=== PATIENT | male | born 1975 | race Two or more races ===

== ENCOUNTER 2020-08-04 08:12 | Outpatient (CLI) | payer OTHER | END 2020-08-04 08:23 | disposition home or self-care (01) | LOC: RAD 08:12 → TOM 08:12 → RAD 08:23 → TOM 08:30 | PROVIDERS: ATTEND Urology | DX: N20.0 Calculus of kidney (principal) ==

== ENCOUNTER 2020-08-15 07:12 | Outpatient (CLI) | payer OTHER | END 2020-08-15 07:27 | disposition home or self-care (01) | LOC: RAD 07:12 | PROVIDERS: ATTEND Urology | DX: R07.89 Other chest pain (principal); N20.0 Calculus of kidney ==

== ENCOUNTER 2020-09-11 05:00 | Day surgery (SDC) | payer OTHER | END 2020-09-11 10:15 | disposition home or self-care (01) | LOC: CIR.AMB 05:00 | PROVIDERS: ATTEND Urology | DX: N20.0 Calculus of kidney (principal) ==

== ENCOUNTER → 2020-09-14 06:14 | Outpatient (CLI) | payer OTHER | END | disposition home or self-care (01) | LOC: LAB 06:14 | PROVIDERS: ATTEND Urology | DX: N20.0 Calculus of kidney (principal); M25.511 Pain in right shoulder ==